=== PATIENT | female | born 1995 | race Hispanic/Latino ===

== ENCOUNTER 2018-12-01 17:23 | Observation (INO) | payer MEDICAID ==
[~2018-12-01] VITALS: Ht 160 cm; Wt 78.9 kg
[2018-12-01 18:18] LABS: APPEARANCE,URINE Clear (CLEAR); BILIRUBIN,URINE Negative (NEGATIVE); COLOR,URINE Yellow (YELLOW); GLUCOSE, URINE (UA) TRACE mg/dL (NEGATIVE); KETONES,URINE Negative (NEGATIVE); LEUKOCYTE ESTERASE ,URINE Negative (NEGATIVE); NITRATE,URINE Negative (NEGATIVE); OCCULT BLOOD,URINE Negative (NEGATIVE); PH,URINE 7.5 (5.0-8.0); PROTEIN,URINE Negative (NEGATIVE); UROBILINOGEN,URINE 0.2 mg/dL (0.2-1.0)
[2018-12-01] MEDS ORDERED: BUTORPHANOL TARTRATE 2 MG/ML IVP SCH (18:30)
[2018-12-01] MEDS ORDERED: LACTATED RINGERS 1000ML IV SCH (18:30)
[2018-12-01] MEDS ORDERED: LACTATED RINGERS 1000ML 1,000 ML IV SCH (18:45)
[2018-12-01 18:54] LABS: BACTERIA,URINE Few /HPF (None Seen)
[2018-12-01 18:55] LABS: WBC,URINE 0-1 /HPF (0-1)
[2018-12-01 18:57] LABS: RBC,URINE None Seen /HPF (0-1)
== END 2018-12-01 19:50 | disposition home or self-care (01) ==
LOC: EDH 17:23 → LDH 17:40
PROVIDERS: ADMIT Specialist; ATTEND Specialist
DX: O26.893 Other specified pregnancy related conditions, third trimester (principal); R10.31 Right lower quadrant pain; Z3A.30 30 weeks gestation of pregnancy
CPT/HCPCS: 81001; 96374; 99284; G0378 ×2; J0595; 96360

== ENCOUNTER 2020-11-19 09:07 | Emergency (ER) | payer MEDICAID, OTHER ==
[~2020-11-19 09:07] MED LIST: PNV#1COM14 PO
[2020-11-19 10:13] LABS: APPEARANCE,URINE Clear (CLEAR); BILIRUBIN,URINE Negative (NEGATIVE); COLOR,URINE Yellow (YELLOW); GLUCOSE, URINE (UA) Negative (NEGATIVE); KETONES,URINE Negative (NEGATIVE); LEUKOCYTE ESTERASE ,URINE Negative (NEGATIVE); NITRATE,URINE Negative (NEGATIVE); OCCULT BLOOD,URINE Negative (NEGATIVE); PH,URINE 7.5 (5.0-8.0); PROTEIN,URINE Negative (NEGATIVE)
[2020-11-19 10:19] LABS: HCG,QUAL RESULT NEGATIVE (NEGATIVE)
== END 2020-11-19 11:43 | disposition home or self-care (01) ==
LOC: EDH 09:07
DX: S13.4XXA Sprain of ligaments of cervical spine, initial encounter (principal); M62.838 Other muscle spasm; Z98.890 Other specified postprocedural states; V59.3XXA Occupant (driver) (passenger) of pick-up truck or van injured in unspecified nontraffic accident, initial encounter; Y93.89 Activity, other specified; Y92.89 Other specified places as the place of occurrence of the external cause; Y99.8 Other external cause status
CPT/HCPCS: 81003; 81025